=== PATIENT | male | born 2005 | race African-American/Black ===

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

== ENCOUNTER 2024-12-11 18:17 | Emergency (ER) | payer BC, OTHER ==
[~2024-12-11] VITALS: Ht 170.2 cm; Wt 72.2 kg
[2024-12-11] MEDS: PROPARACAINE 0.5% OPHTH SOL 15ML OS ONE (19:25)
[2024-12-11] MEDS: FLUORESCEIN OPHTH 1 MG STRIP OS ONE (19:25)
[2024-12-11] MEDS: ACETAMINOPHEN 500 MG TAB PO ONE (19:31)
[2024-12-11 20:05] VITALS: BP 110/77; TEMP 98.3; O2SAT 100
== END 2024-12-11 20:22 | disposition home or self-care (01) ==
LOC: M ED 18:17
DX: R51.9 Headache, unspecified (principal); H57.10 Ocular pain, unspecified eye